=== PATIENT | female | born 1985 | race Caucasian/White ===

== ENCOUNTER 2017-11-13 16:56 | Emergency (ER) | payer BC ==
[~2017-11-13] VITALS: Ht 157.5 cm; Wt 51.6 kg
[2017-11-13 22:06] VITALS: BP 104/70
== END 2017-11-13 22:11 | disposition home or self-care (01) ==
LOC: EME 16:56
DX: O99.89 Other specified diseases and conditions complicating pregnancy, childbirth and the puerperium (principal); R51 Headache; J45.909 Unspecified asthma, uncomplicated; Z3A.12 12 weeks gestation of pregnancy; Z88.5 Allergy status to narcotic agent; Z88.0 Allergy status to penicillin
CPT/HCPCS: 99281; 99284; J1200; J2765; J7030

== ENCOUNTER → 2018-03-14 | Outpatient (CLI) | payer OTHER ==
[~2018-03-14] VITALS: Ht 157.5 cm; Wt 58.6 kg
[~2018-03-14] MED LIST: IRON256 MG PO; PRENATAL GUMMI1 EACH PO
[2018-03-14 17:47] VITALS: BP 106/57
== END | disposition home or self-care (01) ==
LOC: IVINF 17:30
DX: Z34.83 Encounter for supervision of other normal pregnancy, third trimester (principal); Z3A.28 28 weeks gestation of pregnancy; Z67.11 Type A blood, Rh negative
CPT/HCPCS: 96372; J2790

== ENCOUNTER 2018-05-24 07:29 | Inpatient (IN) | payer OTHER ==
[~2018-05-24] VITALS: Ht 157.5 cm; Wt 62.6 kg
[~2018-05-24 07:29] MED LIST changes: +FERROUS SULFAT325 MG PO; +FIORICET 50-301 EAC1 PO; +PRENATAL TABLE1 EACH PO; +VENTOLIN HFA18 GM IH
[2018-05-24 07:53] VITALS: BP 119/71
[2018-05-24] MEDS ORDERED: IBUPROFEN800 MG PO (07:58)
[2018-05-24] MEDS ORDERED: ENDOCET 5-3251 EACH PO (07:58)
[2018-05-24] MEDS ORDERED: MYLICON,MYLANTA80 MG PO (07:58)
[2018-05-24 09:42] VITALS: BP 107/71
[2018-05-24 16:09] LABS: AMPHETAMINE NEGATIVE (500 ng/mL); BARBITURATES NEGATIVE (200 ng/mL); BENZODIAZEPINES NEGATIVE (150 ng/mL); BUPRENORPHINE NEGATIVE (10 ng/mL); COCAINE NEGATIVE (150 ng/mL); METHADONE NEGATIVE (200 ng/mL); METHAMPHETAMINE NEGATIVE (500 ng/mL); OPIATES (MORPHINE) NEGATIVE (100 ng/mL); OXYCODONE NEGATIVE (100 ng/mL); PHENCYCLIDINE NEGATIVE (25 ng/mL); PROPOXYPHENE NEGATIVE (300 ng/mL); THC CANNABINOIDS NEGATIVE (50 ng/mL); TRICYCLIC ANTIDEPRESSANTS NEGATIVE (300 ng/mL)
[2018-05-25 06:17] LABS: BASOPHIL (%) 0.1 % (0-1); EOSINOPHIL (%) 0.1 % (0-5); HEMATOCRIT 25.4 % (36.0-46.0); IMMATURE GRANULOCYTE (%) 0.9 % (0.0-0.7); LYMPHOCYTE (%) 11.8 % (15-42); LYMPHOCYTE COUNT 1.7 K/uL (1.0-2.8); MCH 28.2 PG (29.0-34.0); MCHC 32.7 G/DL (30.0-36.0); MCV 86.4 FL (83-99); MONOCYTE (%) 8.2 % (3-12); MONOCYTE COUNT 1.2 K/uL (0-0.8); NEUTROPHIL (%) 78.9 % (45-76); NEUTROPHIL COUNT 11.2 K/uL (1.8-6.4); PLATELET COUNT 115 K/uL (156-360); RBC DIS.WIDTH-CV 14.8 % (11.8-14.6); RBC DIS.WIDTH-SD 47.2 % (39-53); WHITE BLOOD COUNT 14.3 K/uL (4.1-10.2)
[2018-05-25 06:26] LABS: HEMOGLOBIN 8.3 G/DL (11.9-15.5); RED BLOOD COUNT 2.94 M/uL (3.80-5.20)
== END 2018-05-26 14:42 | disposition home or self-care (01) | DRG 765 ==
LOC: 2WEST 07:29 → 2SOUTH 11:39 → 2WEST 05-26 14:42
PROVIDERS: Obstetrics & Gynecology Gynecology
PROC: 10D00Z1 Extraction of Products of Conception, Low, Open Approach (ICD-10-PCS; principal; 2018-05-24)
DX: O34.211 Maternal care for low transverse scar from previous cesarean delivery (principal); O99.02 Anemia complicating childbirth; D62 Acute posthemorrhagic anemia; Z3A.39 39 weeks gestation of pregnancy; Z37.0 Single live birth
CPT/HCPCS: 36415; 83030; 85025; 86850; 86870; 86900; 86901; 86920; J0330; J0690; J1100; J1200; J1885; J2274; J2405; J2790; J3010; J7120